=== PATIENT | male | born 1980 | race Hispanic/Latino ===

== ENCOUNTER 2017-12-31 12:39 | Observation (INO) | payer OTHER ==
[~2017-12-31] VITALS: Ht 162.6 cm; Wt 81.7 kg
--- NOTE | 2017-12-31 17:22 | NUR ---
PT TO FLOOR VIA STRETCHER WITH DEBONING TEAM LEADER. PT IN 4 PT RESTRAINTS AND GUARDS IN ROOM. PT MALIAN ONLY. PT UP TO RESTROOM FOR 550 LIGHT YELLOW URINE OUT. CHANGED INTO GOWN. IVF RUNNING. GIVEN 0.6 DILAUDID FOR PAIN. PT RATES 4\10 BUT HAS TEARS RUNNING DOWN FACE. DOES NOT TAKE ANY MEDICATIONS AT THE JAIL, VERIFIED WITH [facility]. PT DENIES MEDICAL HX EXCEPT BROKEN RIGHT WRIST. NO SURGICAL HX.
--- NOTE | 2017-12-31 18:43 | NUR ---
PATIENT RESTING IN BED WITH EYES CLOSED. GAURDS IN ROOM. NO NEEDS AT THIS TIME.
--- NOTE | 2017-12-31 19:26 | NUR ---
patient up to stand at bedside and void in urinal. pre-surgical wipe done. LR on straight tubing in room
--- NOTE | 2017-12-31 19:57 | NUR ---
gave bedside report to public address system operator. pt left floor via stretcher with public address system operator and edmond beard.
--- NOTE | 2017-12-31 20:09 | NUR ---
ROUNDED CHARGE. PATIENT IS PREPARING FOR SURGERY. SIMONE AT THE BEDSIDE. NO COMMENTS, QUESTIONS, OR CONCERNS.
--- NOTE | 2017-12-31 21:59 | NUR ---
12/31/17 884 Marianna Acevedo PATIENT AWAKE AND COMPLAINING OF THE URGE TO VOID. CATHETER REMOVED AFTER 8 ML EMPTIED FROM [place] AND PT TOLERATES THE REMOVAL WELL. 50 ML YELLOW, CLEAR URINE NOTED TO SAUL BAG. PATIENT GIVEN A URINAL. PATIENT STANDS AT BS W/OFFICER AND RN STANDBY AND ATTEMPTS TO VOID.
--- NOTE | 2017-12-31 22:30 | NUR ---
pt to the floor via stretcher, able to stand and transfer self with minimal assist from stretcher to bed. communicating with pt with an iphone clyde that translates danish to telugu and telugu to danish; communicating very well. rates pain as "little," and refused pain medication at the moment. denies nausea. oriented pt to call light. vitals and assessment completed. no further needs at this time. 4 point restraints, no redness or swelling at restraint sites. edmond in room x2.
--- NOTE | 2017-12-31 23:10 | NUR ---
PT USED URNINAL, VOIDED 100MLS. PT HAS NO FURTHER NEEDS.
--- NOTE | 2018-01-01 00:06 | NUR ---
PT APPEARS TO BE SLEEPING. RR WNL AND UNLABORED.
--- NOTE | 2018-01-01 00:50 | NUR ---
GUSTAVO IBARRAO;E NOTIFIED RE TEMP.
--- NOTE | 2018-01-01 01:05 | NUR ---
PT COMPLAINED OF 5/10 PAIN, GAVE DILAUDID IV FOR PAIN. PT'S TEMP SLIGHTLY ELEVATED, HAD PT USE INCENTIVE SPIROMETER. WILL CONTINUE TO MONITOR CLOSELY. PT HAS NO S/SX OF FEVER AT THIS TIME. CALL LIGHT IN REACH. NO FURTHER NEEDS.
--- NOTE | 2018-01-01 02:43 | NUR ---
PT APPEARS TO BE SLEEPING. 02 SAT 96% ON RA. TORI X2 AT BEDSIDE.
--- NOTE | 2018-01-01 04:10 | NUR ---
PT APPEARS TO BE SLEEPING. RR WNL AND UNLABORED. O2 SAT 93% ON RA. HR 102. GAURDS X2 IN ROOM.
--- NOTE | 2018-01-01 05:47 | NUR ---
DR NICHOLS NOTIFIED OF PT'S TEMP OF 102.5. NEW TYLENOL ORDER RECIEVED. ALSO VERIFIED DIET ORDER IS CORRECT.
--- NOTE | 2018-01-01 06:46 | NUR ---
pt appears to be sleeping. rr wnl and unlabored. hr 97, o2 sat 92% on ra.
--- NOTE | 2018-01-01 08:01 | NUR ---
REPORT RECIEVED FROM GUSTAVO LEARY. PT SLEEPING, GUARDS IN ROOM. RN REPORTS PT HAD A GOOD NIGHT AND SLEPT MOST OF IT.
--- NOTE | 2018-01-01 08:46 | NUR ---
PT SLEEPING UNTIL AWOKEN FOR ASSESSMENT. GIVEN 1 TAB NORCO FOR PAIN 2\10, HAD NOT HAD MEDS SINCE MIDNIGHT. USED IPHONE LO TO COMMUNICATE. PT DENIES CONCERNS ATT. LAPS SITES WNL. IRMA HAS LITTLE TO NO DRAINAGE.
--- NOTE | 2018-01-01 09:21 | NUR ---
PATIENT SITTING IN BED EYES CLOSED. 2 GUARDS IN ROOM. VITALS DONE, FRESH WATER GIVEN, CALL LIGHT IN REACH. NO OTHER NEEDS.
--- NOTE | 2018-01-01 09:56 | NUR ---
PT GOWN CHANGED AND WALKING IN HALLS WITH GUARDS.
--- NOTE | 2018-01-01 09:58 | NUR ---
PATIENT AMBULATING IN HALLWAY WITH TWO GUARDS.
--- NOTE | 2018-01-01 10:41 | OR ---
[facility] [address], [place] [address] Signed DATE OF OPERATION: 12/31/2017 SURGEON: Estefania Nichols MD PREOPERATIVE DIAGNOSIS: Acute appendicitis with toxicity, lactic acid 2.5. POSTOPERATIVE DIAGNOSIS: Acute perforated appendicitis. PROCEDURE: Laparoscopic appendectomy, prolonged complicated difficult placement of drain. ANESTHESIA: General endotracheal, Sumit BERNARDO Kasper and local 10 mL of 0.25% Marcaine without epinephrine. INDICATION: This 37-year-old man has been uncomfortable since last night with vague abdominal pain. He was evaluated in the emergency room by Dr. Metcalf, whose evaluation showed a white count of 19.9, and a CT scan showing findings consistent with appendicitis. He has been fluid resuscitated, given broad-spectrum antibiotic Zosyn and is admitted to the OR at this time to undergo appendectomy, preferably by laparoscopic approach. The risks of bleeding, infection, need for open procedure, and so forth were reviewed with the patient with a language interpreting device. He understands and wished to proceed with operation. FINDINGS: Appendix was markedly inflamed and ultimately noted to be perforated. The appendix was extracted in 2 segments. The operation was prolonged, complicated, and difficult on the basis of these anatomic findings, but was accomplished safely. The terminal ileum, liver, and other intraabdominal organs visualized were normal. DESCRIPTION OF PROCEDURE: The patient was brought to the operating room, given a general endotracheal anesthetic. A Draper catheter was placed. The abdomen was clipped and prepared with a chlorhexidine solution and draped sterilely. Preoperative antibiotic Zosyn was given once again. Sequential compression device stockings were used. The abdomen was prepared with a chlorhexidine solution and draped sterilely. An infraumbilical incision was made using an open Sandy cannula technique. Pneumoperitoneum achieved to a level 14 mmHg with Electronically Signed By: ESTEFANIA NICHOLS MD 01/01/18 1041 PATIENT NAME: DEVIN MARADIAGA OPERATIVE REPORT DATE OF : 76 PHYSICIAN: ESTEFANIA INCHOLS MD REPORT #: [id number] REPORT IS CONFIDENTIAL AND NOT TO BE RELEASED WITHOUT AUTHORIZATION [facility] [address], [place] [address] Signed carbon dioxide gas. Intraabdominal inspection showed no sign of ascites or carcinomatosis. The appendix was not immediately visible. The liver appeared normal as there was the small bowel in the right lower abdomen. The epigastric 12 mm port was placed and the camera was placed to that site. One hand manipulation of the cecum did not allow for visualization of the appendix. A 5 mm port was placed in the right lower quadrant and with two hand manipulation, the cecum was manipulated as was the small bowel. The table was placed into a Trendelenburg position and ultimately [id number] position. The tip of the appendix could then be identified and was gently grasped and noted to be markedly dilated and markedly inflamed. It appeared to be tethered posteriorly. With various manipulations, the cecum was manipulated and the cecal adhesions to the sidewall were freed with minimal amounts of electrocautery rotating the cecum more to the midline. Ultimately, it was found that the appendix was densely tethered and kinked about 2 cm from its insertion to the cecum and with various manipulations found to be perforated. There was no sign of well-formed abscess, only a small amount of purulence. This area was manipulated and the distal segment distracted. There was no leakage of fecal material, however. The mesoappendix was now elevated and transected with an Endo-DAVID stapling device with a vascular load and extracted with an endobag through the infraumbilical port. Further manipulation allowed for dissection of the remaining appendiceal stump. This was meticulously dissected free from the retroperitoneum and clips applied to the vascular pedicles as necessary. Once the appendix was fully mobilized, the appendix at the base of the cecum was transected with an Endo-DAVID stapling load. Two such loads were required to secure it safely. The appendiceal stump that was distracted, was then removed through the infraumbilical port site without problem. Irrigation was undertaken and a small bleeding vessel was secured with retroperitoneal clips. Further irrigation showed no sign of other abnormality. Excess irrigation fluid was suctioned free. Through the right lower quadrant incision, a 7 mm flat Lenin drain was placed and manipulated to the right lower quadrant. Then secured the skin with a nylon suture. Ultimately attached to bulb suction. The trocars were removed under direct visualization showing no sign of bleeding. The infraumbilical fascial incision was reapproximated with interrupted 0 Vicryl suture. All wounds were copiously irrigated with saline solution. Skin closed with interrupted 3-0 Vicryl. Steri-Strips were applied. The patient was ultimately extubated and transferred to recovery in good condition having suffered no complication. Sponge, needle, and instrument counts reported as correct x3 MD TONY Leal/JENSEN Electronically Signed By: ESTEFANIA NICHOLS MD 01/01/18 1041 PATIENT NAME: PATRICIA LYONDEVIN OPERATIVE REPORT DATE OF : 76 PHYSICIAN: ESTEFANIA NICHOLS MD REPORT #: [id number] REPORT IS CONFIDENTIAL AND NOT TO BE RELEASED WITHOUT AUTHORIZATION [facility] [address] [place], [place] [address] Signed /[id number] cc: Rock Calle MD Electronically Signed By: ESTEFANIA NICHOLS MD 01/01/18 1041 PATIENT NAME: DEVIN MARADIAGA OPERATIVE REPORT DATE OF : 76 PHYSICIAN: ESTEFANIA NICHOLS MD REPORT #: [id number] REPORT IS CONFIDENTIAL AND NOT TO BE RELEASED WITHOUT AUTHORIZATION
--- NOTE | 2018-01-01 10:41 | HP ---
[facility] [address], [place] [address] Signed ADMISSION DATE: 12/31/2017 REASON FOR ADMISSION: Acute appendicitis. HISTORY: This 37-year-old man presented to the emergency room at approximately 1 p.m. today and evaluated by Dr. Metcalf with complaints of abdominal pain since last night with dry heaves and feeling poorly. His evaluation in the emergency room culminated in a CT scan when his white count was found to be nearly 20,000, showing acute appendicitis. He is admitted for further evaluation and care. PAST MEDICAL HISTORY: Negative. MEDICATIONS: He takes no medications chronically. SOCIAL HISTORY: He is incarcerated at the [facility], and speaks little or no Yakut really. Communication with the patient is via an iPhone clyde that is very good in its ability to facilitate communication. ALLERGIES: He is noted to have no known drug allergies. REVIEW OF SYSTEMS: He denies any shortness of breath or chest pain. He has no lower extremity pain. His pain is mostly in the abdomen and mostly in the right lower quadrant. PHYSICAL EXAMINATION: GENERAL: A somewhat obese man who does look systemically toxic at this time. VITAL SIGNS: His temperature is 99.2, pulse is 99, blood pressure 132/73. HEENT: Mucous membranes are slightly dry. He has received 1 L of lactated Ringer's as a bolus earlier. He has a maintenance IV currently. Another liter is planning to be given at this time. His trachea is midline. CHEST: Shows normal respiratory excursion and lungs are clear. HEART: Regular without murmur. ABDOMEN: Somewhat obese, but not excessively so. Rovsing sign is positive. He has marked tenderness at McBurney's point. There is no sign of ascites. EXTREMITIES: Show no clubbing, cyanosis, or edema. Electronically Signed By: ESTEFANIA NICHOLS MD 01/01/18 1041 PATIENT NAME: DEVIN MARADIAGA HISTORY AND PHYSICAL DATE OF : 76 PHYSICIAN: ESTEFANIA NICHOLS MD REPORT #: [id number] REPORT IS CONFIDENTIAL AND NOT TO BE RELEASED WITHOUT AUTHORIZATION [facility] [address], [place] [address] Signed LABORATORY STUDIES: Show white count 19.9, hematocrit 45.3, platelets 190,000. Chem profile is normal. Lactic acid is elevated at 2.5. Liver enzymes are normal. Lipase 17. Urinalysis is normal. I reviewed the CT scan in detail. There is a somewhat dilated appendix and some periappendiceal stranding. There is no sign of free air or abscess collection. The gallbladder itself looks mildly distended, but there is no sign of stones or pericholecystic fluid. ASSESSMENT: His clinical diagnosis is that of appendicitis, confirmed largely by CT scan. It is notable he has elevated lactic acid level and he does appear somewhat toxic. He has received Zosyn antibiotic already and we will plan for operative intervention tonight to include laparoscopic appendectomy, possible open procedure. The risks of bleeding, infection, need for open procedure, and so forth were explained to him with the aid of the nurse and her iPhone clyde. I believe he will do well with operation and he is willing to proceed with it as we have recommended. Estefania Nichols MD JM/MODL /[id number] cc: Dr. Dimitris SUAREZ Dr. Tea [facility] Electronically Signed By: ESTEFANIA NICHOLS MD 01/01/18 1041 PATIENT NAME: DEVIN MARADIAGA HISTORY AND PHYSICAL DATE OF : 76 PHYSICIAN: ESTEFANIA NICHOLS MD REPORT #: [id number] REPORT IS CONFIDENTIAL AND NOT TO BE RELEASED WITHOUT AUTHORIZATION
[2018-01-01] MEDS ORDERED: HYDROCODON-ACE1 EA10 PO ×2 (10:49→10:58)
[2018-01-01] MEDS ORDERED: MAPAP325 MG PO (10:50)
--- NOTE | 2018-01-01 10:50 | NUR ---
DR NICHOLS IN ROOM TO ASSESS PT. REMOVED IRMA DRAIN WO DIFFICULTY. REMOVED UMBILICUS DRESSING. CLEANED UP WITH WARM WATER. STATED HE WOULD WRITE DISCHARGE ORDERS BUT TO HOLD OFF UNTIL LATER IN DAY AND CALL IF DC'ING.
[2018-01-01] MEDS ORDERED: TYLENOL325 MG PO (10:58)
[2018-01-01] MEDS ORDERED: METRONIDAZOLE250 MG PO (10:58)
[2018-01-01] MEDS ORDERED: CIPROFLOXACIN500 MG PO (10:58)
--- NOTE | 2018-01-01 14:27 | NUR ---
PT WATCHING TV. GUARDS IN ROOM. ADMINISTERED 2 [place]. WILL RETURN TO HAVE PT WALK IN HALF HOUR.
--- NOTE | 2018-01-01 14:55 | NUR ---
PATIENT UP AMBULATING IN HALLWAY WITH TWO GAURDS.
--- NOTE | 2018-01-01 15:00 | NUR ---
PT UP WALKING IN HALLWAY WITH GUARDS. APPEARS LESS PAINFUL THAN LAST TIME.
--- NOTE | 2018-01-01 15:14 | NUR ---
DR NICHOLS CALLED TO CHECK ON PT. LET HIM KNOW ABOUT THAT PT HAD WALKED AGAIN AND TOLERATED BETTER THAN THIS MORNING. PT STILL APPEARS UNCOMFORTABLE AND SLIGHTLY DIAPHORETIC, DECIDED TO KEEP UNTIL MORNING. WILL INFORM GUARDS.
--- NOTE | 2018-01-01 15:48 | NUR ---
PATIENT SITTING UP IN BED WATCHING TV. PATIENT STATES THAT HE IS A 2 OUT OF 10 PAIN. CALL BUTTON IN REACH. NO OTHER. NEEDS AT THIS TIME.
--- NOTE | 2018-01-01 16:50 | NUR ---
IN ROOM TO ADMINISTER SCHEDULUED FLAG[place]. PT WAS ASLEEP, BUT EASILY AROUSED. DENIES PAIN. GAURDS IN ROOM. PT APPEARS COMFORTABLE. DINNER ORDERED.
--- NOTE | 2018-01-01 17:37 | NUR ---
PATIENT SITTING UP IN BED SHIVERING. VITALS WHERE DONE AND RN NOTIFIED. THIS PARBOILER APPLIED COOL WASH CLOTH ON PATIENTS HEAD DUE TO FEVER. FRESH ICE WATER GIVEN CALL BUTTON IN REACH.
--- NOTE | 2018-01-01 17:45 | NUR ---
PT AMBULATED X2. PAIN CONTROLLED WITH 2 TABS NORCO X2. ATE A MODERATE AMT, TOLERATED WELL. NO N\V REPORTED. SPIKED FEVER TWICE, WITH SHAKES. GIVEN THE NORCO AND BROUGHT IT DOWN. IRMA REMOVED, BANDAID PLACED. PROBABLE DC TOMORROW MORNING.
--- NOTE | 2018-01-01 19:10 | NUR ---
GUSTAVO FERREIRA FROM [employer] CALLED FOR AN UPDATE ON PT'S CONDITION. CALLED HER BACK ON THE [employer] NUMBER WE HAVE AND UPDATED HER.
--- NOTE | 2018-01-02 00:15 | NUR ---
PT IS SLEEPING AT THIS TIME.
--- NOTE | 2018-01-02 02:00 | NUR ---
PT IS STILL SLEEPING AT THIS TIME.
--- NOTE | 2018-01-02 04:05 | NUR ---
ASSISTED PT TO BATHROOM, GUARDS IN ROOM. PT HAD A SMALL BM, PT STATED THAT HE IS PASSING GAS. PAIN IS 0/10. PT IS GOING FOR A WALK AT THIS TIME.
--- NOTE | 2018-01-02 05:06 | NUR ---
V/S ARE WDL SO FAR THIS SHIFT, PT HAS BOWEL TONES PRESENT, PT IS PASSING GAS, PT HAD A SMALL BM EARLIER THIS MORNING. URINE OUTPUT IS ADEQUATE, PT IS TOLERATING A REGULAR DIET. DRESSING ON LAP SITES X2 IS C/D/I, NAVEL LAP SITE IS OUTREACH REPRESENTATIVE AND HAS A SCANT AMOUNT OF SEROUS DRANINAGE AT TIMES. PAIN IS WELL CONTROLLED WITH PRN PAIN MEDS, PT SO FAR THIS SHIFT HAS NOT NEEDED ANY PAIN MEDICATION. PT ALSO AMBULATED TODAY. NO NEW CONCERNS FOR THIS PT AT THIS TIME.
--- NOTE | 2018-01-02 07:28 | NUR ---
HANDOFF REPORT RECEIVED FROM CASE MANAGEMENT ASSISTANT RN.
--- NOTE | 2018-01-02 08:40 | NUR ---
PT RESTING IN BED. PT RATING PAIN 2/10 TO ABD, DENIES NEED FOR PAIN MEDICATION. PT DENIES NAUSEA. PT TOLERATING REGULAR DIET, BOWEL TONES ACTIVE. PT ON ROOM AIR, O2 SATS 97%. PT WITH LAP SITES X3 TO ABD, WITHOUT DRAINAGE. PT WITHOUT EDEMA, CMS INTACT. DISCUSSED DISCHAREG TODAY, ENCOURAGED TO AMBULATE IN [place]. PT DENIES OTHER NEEDS AT THIS TIME.
--- NOTE | 2018-01-02 09:20 | NUR ---
ER CALLED AND BLOOD CULTURE REPORTS CAME BACK POSITIVE FOR GRAM POSITIVE COCCI IN THE AEROBIC BOTTLE ONLY, RESULTS CALLED TO DOCTOR SIMONE AT THIS TIME.
== END 2018-01-02 10:47 | disposition home or self-care (01) ==
LOC: ED 12:39 → MS 12:42
PROVIDERS: ADMIT Surgery
PROC: 0DTJ4ZZ Resection of Appendix, Percutaneous Endoscopic Approach (ICD-10-PCS; principal; 2017-12-31 19:42)
DX: K35.3 Acute appendicitis with localized peritonitis (principal); E66.9 Obesity, unspecified; Z68.30 Body mass index [BMI] 30.0-30.9, adult
CPT/HCPCS: 00840; 36415; 74177; 80048; 80053; 81001; 83605; 83690; 85025; 87040; 87077; 87184; 87185; 87186; 94762; 96361; 96365; 96366; 96375; 96376; 99285; G0378; J1170; J1885; J2250; J2370; J2405; J2543; J2704; J2765; J3010; J7030; J7120; Q9967

== ENCOUNTER 2019-05-06 13:31 | Emergency (ER) | payer OTHER ==
[~2019-05-06] VITALS: Ht 162.6 cm; Wt 81.7 kg
[~2019-05-06 13:31] MED LIST: CIPROFLOXACIN500 MG PO; HYDROCODON-ACE1 EA10 PO; MAPAP325 MG PO; METRONIDAZOLE250 MG PO; TYLENOL325 MG PO
== END 2019-05-06 16:42 | disposition home or self-care (01) ==
LOC: ED 13:31
DX: R10.9 Unspecified abdominal pain (principal); Z90.49 Acquired absence of other specified parts of digestive tract
CPT/HCPCS: 76705; 80053; 81001; 83690; 85025; 99284-25